=== PATIENT | male | born 2000 | race Caucasian/White ===

== ENCOUNTER 2021-02-18 20:03 | Emergency (ER) | payer BC, OTHER ==
[2021-02-18] MEDS ORDERED: Diphtheria,Pertussis(Acell),Tetanus Vaccine 0.5 ML Syringe IM ONE (20:19)
[2021-02-18] MEDS ORDERED: Lidocaine 2% 5 ML SDV INJECT ONE (20:20)
--- NOTE | 2021-02-18 20:30 | EDM.PDOC ---
ED HPI GENERAL MEDICAL PROBLEM - General Chief Complaint: Laceration Stated Complaint: LEFT FOOT INJURY Time Seen by Provider: 02/18/21 20:05 Source of Information: Reports: Patient, Family History Limitations: Reports: No Limitations - History of Present Illness INITIAL COMMENTS - FREE TEXT/NARRATIVE: 20-year-old male presents to the emergency room with deep wound laceration of the first webspace left foot and minimal laceration over the left great toe. This happened at home this evening when patient ran his foot accidentally over an air vent cover sustaining a laceration to the foot. He denies any other complaints. He has intact sensation light touch at the distal toe second and third toes. No other complaints are voiced. 10 point review of systems was pertinently negative other than documented in his HPI Onset: Today Duration: Minutes:, Constant Location: Reports: Lower Extremity, Left Quality: Reports: Ache Severity: Mild Improves with: Reports: Immobilization, Other (DRESSING APPLIED) Worsens with: Reports: Movement Context: Reports: Trauma Associated Symptoms: Reports: No Other Symptoms Treatments [employer]: Reports: Dressing(s) - Related Data Allergies Allergy/AdvReac Type Severity Reaction Status Date / Time No Known Drug Allergies Allergy Other Verified 02/18/21 21:13 Home Meds: Home Meds . [No Known Home Meds] 02/18/21 [History] ED ROS GENERAL - Review of Systems Review Of Systems: Comprehensive ROS is negative, except as noted in HPI. ED EXAM, GENERAL - Physical Exam Exam: See Below Exam Limited By: No Limitations General Appearance: Alert, WD/WN, No Apparent Distress Ears: Hearing Grossly Normal Nose: Normal Inspection Throat/Mouth: Normal Inspection, Normal Voice Head: Atraumatic Neck: Normal Inspection Peripheral Pulses: 2+: Posterior Tibial (L), Dorsalis Pedis (L) Back Exam: Normal Inspection Extremities: Normal Inspection, Other (Deep laceration first webspace left foot, and laceration over the distal tip of the left great toe.) Neurological: Alert, Oriented, No Motor/Sensory Deficits Psychiatric: Normal Affect, Normal Mood Skin Exam: Warm, Dry, Normal Color, No Rash ED GENERAL MEDICAL PROCEDURES - Laceration/Wound Repair Left Toe - Great Lac/wound length in cm: 4 Appearance: Subcutaneous, Linear, Clean Distal NVT: Neuro & Vascular Intact, No Tendon Injury Anesthetic Type: Digital Local Anesthesia - Lidocaine (Xylocaine): 2% Plain Local Anesthetic Volume: Other (10) Skin Prep: Chlorhexidine (Hibiciens) Exploration/Debridement/Repair: Wound Explored, In a Bloodless Field Closed with: Sutures Suture Size: 4-0 # of Sutures: 9 Drain Placement: No Sterile Dressing Applied: Provider Tetanus Status Addressed: Yes Complications: No Course - Vital Signs Last Recorded V/S: Last Vital Signs Temp 98.0 F 02/18/21 20:15 Pulse 80 02/18/21 20:15 Resp 16 02/18/21 20:15 BP 114/76 02/18/21 20:15 Pulse Ox 97 02/18/21 20:15 - Orders/Labs/Meds Orders: Active Orders 24 hr Category Date Time Status Vaccines to be Administered [RC] PER UNIT ROUTINE Care 02/18/21 20:20 Active Meds: Medications Discontinued Medications Generic Name Dose Route Start Last Admin Trade Name Freq PRN Reason Stop Dose Admin Cephalexin Confirm 02/18/21 21:28 Cephalexin 250 Mg Cap Administered 02/18/21 21:29 Dose 4,500 mg .ROUTE .STK-MED ONE Diphtheria/Tetanus/Acell Pertussis 0.5 ml 02/18/21 20:19 Diphtheria,Pertussis(Acell),Tetanus Vaccine 0.5 Ml Syringe IM 02/18/21 20:20 .ONCE ONE Lidocaine 10 ml 02/18/21 20:20 Lidocaine 2% 5 Ml Sdv INJECT 02/18/21 20:21 ONETIME ONE Lidocaine HCl Confirm 02/18/21 20:48 Lidocaine 1% 20 Ml Mdv Administered 02/18/21 20:49 Dose 20 ml .ROUTE .STK-MED ONE Neomycin/Polymyxin/Bacitracin Confirm 02/18/21 21:29 Bacitracin/Neomycin/Polymyxin B Oint 0.9 Gm U/D Packet Administered 02/18/21 21:30 Dose 1 each .ROUTE .STK-MED ONE - Re-Assessments/Exams Free Text/Narrative Re-Assessment/Exam: 02/18/21 20:32 Left foot was prepped and draped in usual sterile fashion,. 4-0 nylon was used to close deep wound laceration in the first webspace without difficulty. 4-0 nylon was also used to close laceration over the distal left great toe. A dressing and gauze was applied. Patient was instructed to continue with foot elevation over the weekend. Dressing change with primary care on Sunday. He is placed on Keflex 500 mg 3 times daily for 3 days. His tetanus was updated. Patient tolerated procedure well. Departure - Departure Time of Disposition: 21:40 Disposition: Home, Self-Care 01 Condition: Good Clinical Impression: Laceration of left foot excluding toes Qualifiers: Encounter type: initial encounter Qualified Code(s): S91.312A - Laceration wit hout foreign body, left foot, initial encounter - Discharge Information Instructions: Laceration Care, Adult, Sutures, [place], or Adhesive Wound Closure Referrals: PCP,Unknown [Primary Care Provider] - Forms: ED Department Discharge Care Plan Goals: 1. Change dressing on Sunday with primary care. 2. Keflex 500 mg 3 times daily for 3 days 3. Tetanus is updated 4. Suture removal between 10 and 14 days with primary care. Sepsis Event Note (ED) - Focused Exam Vital Signs: Vital Signs Temp Pulse Resp BP Pulse Ox 02/18/21 20:15 98.0 F 80 16 114/76 97 - My Orders Last 24 Hours: My Active Orders 02/18/21 20:20 Vaccines to be Administered [RC] PER UNIT ROUTINE - Assessment/Plan Last 24 Hours: My Active Orders 02/18/21 20:20 Vaccines to be Administered [RC] PER UNIT ROUTINE Assessment:: 1. Laceration left foot first webspace and great toe Plan: 1. Change dressing on Sunday with primary care. 2. Keflex 500 mg 3 times daily for 3 days 3. Tetanus is updated 4. Suture removal between 10 and 14 days with primary care.
[2021-02-18] MEDS ORDERED: Lidocaine 1% 20 ML MDV ONE (20:48)
[2021-02-18] MEDS ORDERED: Cephalexin 250 MG Cap ONE (21:28)
[2021-02-18] MEDS ORDERED: Bacitracin/Neomycin/Polymyxin B Oint 0.9 GM U/D Packet ONE (21:29)
== END 2021-02-18 21:45 | disposition home or self-care (01) ==
LOC: KA.ED 20:03
DX: S91.112A Laceration without foreign body of left great toe without damage to nail, initial encounter (principal); Z23 Encounter for immunization; W26.8XXA Contact with other sharp object(s), not elsewhere classified, initial encounter; Y93.02 Activity, running
CPT/HCPCS: 12002; 90471; 90715; 99282-25; 99283; A9270-GY